=== PATIENT | female | born 1985 | race Hispanic/Latino ===

== ENCOUNTER → 2016-07-30 | Day surgery (SDC) | payer OTHER ==
--- NOTE | 2016-07-28 13:40 | History & Physical Pre-Op ---
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 Patient also complains of painful hammertoes involving the fifth digit bilaterally. The patient has undergone an extended course of conservative care, including shoe gear and activity modification, rest, immobilization and courses of NSAIDs. None of this is yielded her any significant relief. The patient presents today for preoperative surgical consultation. Past History Medical History Cardiovascular: hypertension Endocrine: hypothyroidism Surgical History Pertinent Surgical History: (gastric sleeve) Review of Systems Review of Systems: Unremarkable except for that noted in history of present illness Exam & Diagnostic Data Physical Exam: Lungs clear bilaterally. Heart sounds rate and rhythm regular. Lower extremity physical exam demonstrates intact pedal pulses bilaterally. Both dorsalis pedis and posterior tibial arteries are palpable bilaterally. Patient without any sensory motor deficits. Deep tendon reflexes grossly intact. Patient noted a has never in pain with palpation to the fifth metatarsophalangeal joint bilaterally and the proximal interphalangeal joints of the fifth digits bilaterally. Assessment/Plan Assessment/Plan: Painful tailor's bunions and hammertoes bilaterally. A lengthy discussion reviewing both surgical and conservative options was held with the patient at bedside and the patient elects to go forward with surgery despite the risks. As Ranked By This Provider Problem List: 1. Other acquired deformities of right foot 2. Other hammer toe(s) (acquired), right foot
[~2016-07-30] VITALS: Ht 165.1 cm; Wt 68.0 kg
[~2016-07-30] MED LIST: ARMOUR THYROID60 M1 PO; DYAZIDE 37.5-21 EACH PO
--- NOTE | 2016-07-30 11:54 | Operative Report ---
Operative/Inv Procedure Report Surgery Date: 07/30/16 Name of Procedure: 1 tailor's bunionectomy right foot 2 tailor's bunionectomy left foot 3 arthroplasty fifth toe right foot 4 arthroplasty fifth toe left foot Pre-Operative Diagnosis: 1 tailor's bunion right foot 2 tailor's bunion left foot 3 hammertoe fifth toe right foot 4 hammertoe fifth toe left foot Post-Operative Diagnosis: The same Estimated Blood Loss: scant Surgeon/Rd Project Manager: RAFAEL XIE DPM Anesthesia: moderate sedation, block Operative/Procedure Note Note: After obtaining informed consent the patient was brought to the operating room and placed on the operating table in the supine position. The patient isn't securely fastened to the operating table utilizing safety belt. After administration of IV sedation, 10 mL of 0.5% Marcaine plain was infiltrated about the patient's left and right ankles. 2 well-padded ankle tourniquets were placed about the patient's left and right ankles. 2 g of Ancef delivered in the intravenously times one dose. The left and right feet were then scrubbed prepped and draped in usual aseptic manner. The right lower extremity was elevated to examine to limb, at which point the ankle tourniquet inflated to 250 mmHg. Attention directed to the distal lateral right foot, where a 4 cm linear incision was made over the distal fifth metatarsal. Skin incised with 15 blade and deepened subtenons tissues. All vital neurovascular structures were identified protected. An inverted L capsulotomy was performed exposing the lateral eminence which was resected with sagittal bone saw. A lateral capsulorrhaphy was performed and secured with 3-0 Vicryl. The septae stitches reapproximated 4-0 Vicryl and the skin edges reprepped for nylon. Attention was then directed to the fifth digit where 2 transversely oriented semielliptical incisions centered over the proximal phalangeal joint were incised with 15 blade. The ellipses skin was freed and passed from the operative field. A transverse tenotomy was performed exposing the head of proximal phalanx was removed sagittal bone saw. The extensor tendons reapproximate 4-0 Vicryl and the skin edges reapproximated 4-0 nylon. Incision was dressed with Xeroform 4 x 4's Kerlix and Ankit wrap. The tourniquet was then deflated. Next, the left lower extremity was elevated to examine to limb, at which point the ankle tourniquet was inflated 250 mmHg. Attention directed distal lateral foot, where a 4 cm linear incision was made over the distal fifth metatarsal. The skin was as a 15 blade and deepened subtenons tissues. All vital neurovascular structures were identified protected. An inverted L capsulotomy was performed exposing the lateral eminence, which was removed a sagittal bone saw. A lateral capsulotomy was performed and secured with 3-0 Vicryl. Subtenons tissues reports a 4-0 Vicryl skin edges reapproximated 4-0 nylon. Attention was then directed and fifth digit where 2 transversely oriented semielliptical incisions centered over the proximal phalangeal joint were incised with 15 blade. The skin was freed and passed from the operative field. A transverse tenotomy was performed exposing the head of proximal phalanx as well as the sagittal bone saw. The extensor tendon was reprepped with 4-0 Vicryl and the skin is reprepped for nylon. The incision was then dressed with Xeroform 4 x 4's Kerlix and an Ankit wrap. The patient was transported from the operating room to recovery by sent stable best assess intact all digits bilateral feet.
== END ==
LOC: STS 01:32
DX: M21.621 Bunionette of right foot (principal); M21.622 Bunionette of left foot; M20.42 Other hammer toe(s) (acquired), left foot; M20.41 Other hammer toe(s) (acquired), right foot; I10 Essential (primary) hypertension; E03.9 Hypothyroidism, unspecified
CPT/HCPCS: 36415; 81025; 88304; 88305; J0690; J2001; J2250